=== PATIENT | female | born 1995 | race African-American/Black ===

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

== ENCOUNTER 2017-06-17 14:03 | Emergency (ER) | payer OTHER ==
[2017-06-17] MEDS ORDERED: PENICILLIN G BENZATHINE 1.2 MILLION UNIT/2 ML DISP.SYRIN IM ONE (16:06)
[2017-06-17] MEDS ORDERED: DEXAMETHASONE 4 MG TABLET PO ONE (16:08)
--- NOTE | 2017-06-17 16:10 | ER Document Report ---
ED ENT - General Chief Complaint: Sore Throat Stated Complaint: SORE THROAT Time Seen by Provider: 06/17/17 15:08 Mode of Arrival: Ambulatory Information source: Patient Notes: 22-year-old female presents to ED for complaint of cough runny nose congestion sore throat swollen glands since yesterday. She states she does not know if she has a fever because she has not taken her temperature. She states she is on her menstrual cycle right now. TRAVEL OUTSIDE OF THE [place] IN LAST 30 DAYS: No - HPI Patient complains to provider of: Nose problem, Throat problem Onset: Yesterday Onset/Duration: Gradual Quality of pain: Achy, Sharp - Throat is sharp Severity: Moderate Pain Level: 3 Context: Recent Illness Location of pain: Nose, Sinus, Throat Associated symptoms: Congestion, Cough, Fever, Runny nose, Sinus pain, Sinus drainage, Sore throat, Swollen glands Similar symptoms previously: No Recently seen / treated by doctor: No - Related Data Allergies/Adverse Reactions: No Known Allergies Allergy (Verified 06/17/17 14:04) Past Medical History - General Information source: Patient Last Menstrual Period: On her menstrual cycle now - Social History Smoking Status: Never Smoker Cigarette use (# per day): No Chew tobacco use (# tins/day): No Smoking Education Provided: No Frequency of alcohol use: None Drug Abuse: None Occupation: [employer] Lives with: Alone - Along with her child Family History: Arthritis, COPD, CVA, DM, Hypertension, Malignancy. denies: CAD , Hyperlipidemia, Thyroid Disfunction Patient has suicidal ideation: No Patient has homicidal ideation: No - Past Medical History Cardiac Medical History: Reports: None Pulmonary Medical History: Reports: None EENT Medical History: Reports: None Neurological Medical History: Reports: None Endocrine Medical History: Reports: None Renal/ Medical History: Reports: None Malignancy Medical History: Reports: None GI Medical History: Reports: None Musculoskeltal Medical History: Reports None Skin Medical History: Reports None Psychiatric Medical History: Reports: None Traumatic Medical History: Reports: None Infectious Medical History: Reports: None Past Surgical History: Reports: Hx Section, Hx Orthopedic Surgery - Right ring finger - Immunizations Immunizations up to date: Yes Hx Diphtheria, Pertussis, Tetanus Vaccination: Yes Review of Systems - Review of Systems Notes: Constitutional: [PRESENT: as per HPI. ABSENT: fever(s), weight gain, weight loss] states she thinks she might of had a fever has had a chill and headache Eyes: [ABSENT: visual disturbances] Ears: [ABSENT: hearing changes] Nasopharynx: Runny nose congestion sore throat swollen glands Cardiovascular: [ABSENT: chest pain, dyspnea on exertion, edema, orthropnea, palpitations] Respiratory: [ABSENT: cough, hemoptysis] Gastrointestinal: [ABSENT: abdominal pain, constipation, diarrhea, hematemesis, hematochezia, nausea, vomiting] Genitourinary: [ABSENT: dysuria, hematuria] Musculoskeletal: [ABSENT: joint swelling] Integumentary: [ABSENT: rash, wounds] Neurological: [ABSENT: abnormal gait, abnormal speech, confusion, dizziness, focal weakness, syncope] Psychiatric: [ABSENT: anxiety, depression, homicidal ideation, suicidal ideation ] Endocrine: [ABSENT: cold intolerance, heat intolerance, menstrual abnormalities , polydipsia, polyuria] Hematologic/Lymphatic: [ABSENT: easy bleeding, easy bruising] patient has had anterior cervical lymphadenopathy Physical Exam - Vital signs Vitals: Temp Pulse Resp BP Pulse Ox 100.0 F 89 16 116/64 99 06/17/17 14:12 06/17/17 14:12 06/17/17 14:12 06/17/17 14:12 06/17/17 14:12 - Notes Notes: PHYSICAL EXAMINATION: GENERAL: Well-appearing, well-nourished and in no acute distress. Low-grade fever HEAD: Atraumatic, normocephalic. EYES: Pupils equal round and reactive to light, extraocular movements intact, conjunctiva are normal. ENT: Swollen nasal turbinates with purulent drainage, postnasal drip with tonsillar hypertrophy without exudates. Moist mucous membranes. NECK: Normal range of motion, supple. Anterior cervical lymphadenopathy positive LUNGS: Breath sounds clear to auscultation bilaterally and equal. No wheezes rales or rhonchi. HEART: Regular rate and rhythm without murmurs ABDOMEN: Soft, nontender, nondistended abdomen. No guarding, no rebound. No masses appreciated. Female : deferred Musculoskeletal: Normal range of motion, no pitting or edema. No cyanosis. NEUROLOGICAL: Cranial nerves grossly intact. Normal speech, normal gait. Normal sensory, motor exams PSYCH: Normal mood, normal affect. SKIN: Warm, Dry, normal turgor, no rashes or lesions noted. Course - Re-evaluation Re-evalutation: 06/17/17 16:18 Patient signs and symptoms were consistent with a upper respiratory infection with sore throat. Her strep test did come back positive. Patient was treated with penicillin G IM and Decadron p.o. for her strep. Patient was given instructions on strep throat and cough and cold symptoms. Patient instructed to follow-up with her primary doctor. Patient was able to verbalize understanding of instructions and need to follow-up with her primary doctor. When asked if patient had any other questions or concerns she stated no. - Vital Signs Vital signs: Temp Pulse Resp BP Pulse Ox 99.1 F 82 16 109/58 L 100 06/17/17 16:55 06/17/17 16:55 06/17/17 16:55 06/17/17 16:55 06/17/17 16:55 Discharge - Discharge Clinical Impression: Strep pharyngitis URI (upper respiratory infection) Qualifiers: URI type: unspecified URI Qualified Code(s): J06.9 - Acute upper respiratory infection, unspecified Condition: Stable Disposition: HOME, SELF-CARE Instructions: Family Physicians / Practices Additional Instructions: STREP THROAT: Your sore throat is due to the streptococcus germ (strep throat). Strep throat usually makes you feel quite ill with fever and aches, headache, swollen sore throat, and tender bumps under the angles of the jaw. Strep throat requires antibiotic treatment. Although the sore throat may go away by itself, complications such as rheumatic fever, kidney disease, or throat abscess can occur. We usually prescribe antibiotics by mouth. Be sure to take the medicine until it's gone. If you stop early, the strep may come back. If you are vomiting, are severely ill, or can't remember to take pills, we can give you an antibiotic shot. Take acetaminophen or ibuprofen for pain and fever. Sip frequent clear liquids, or use popsicles or ice chips. Anesthetic sprays or lozenges may help. Make sure the air in the room is not too dry. Avoid using decongestants or antihistamines. Call the doctor if there is no improvement in three days, or if you have difficulty breathing, increasing throat pain, high fever, rash, or frequent vomiting. UPPER RESPIRATORY ILLNESS: You have a viral infection of the respiratory passages -- a "cold." This common infection causes nasal congestion, drainage, and often sore throat and cough. It is highly contagious. The disease usually lasts about 10 to 14 days. There is no "cure" for the viral infection -- it must run its course. If there is a complication, such as bacterial infection in the nose, sinuses, middle ear, or bronchial tubes, antibiotics may be required. The antibiotics won't affect the virus. Drink plenty of fluids. A humidifier may help. An expectorant medication or decongestant may make you more comfortable. Use acetaminophen or ibuprofen for fever or aches. See the doctor if fever persists over two days, if there is any significant worsening of your symptoms, or if you simply fail to improve as expected. USE OF ACETAMINOPHEN (Tylenol): Acetaminophen may be taken for pain relief or fever control. It's much safer than aspirin, offering a wider range of "safe" dosages. It is safe during . Some brand names are Tylenol, Panadol, Datril, Anacin 3, Tempra, and Liquiprin. Acetaminophen can be repeated every four hours. The following are maximum recommended dosages: >89 pounds or adults 650 mg to 900 mg Acetaminophen can be repeated every four hours. Maximum dose not to exceed 4000 mg a day. Ibuprofen Ibuprofen is an excellent, safe drug for pain control. In addition, it has potent antiinflammatory effects which are beneficial, especially in the treatment of injuries, arthritis, or tendonitis. It's best to take ibuprofen with food. Persons with ulcer disease or allergy to aspirin should notify their physician of this before taking ibuprofen. Take the medication exactly as prescribed. Don't take additional doses unless instructed to do so by your doctor. If you develop wheezing, shortness of breath, hives, faintness, stomach pain, vomiting, or dark black stools, return for re-evaluation at once. Penicillins The antibiotic you have received is a member of the penicillin family. This is a very useful class of antibiotics. The particular type of antibiotic chosen for you was determined by the nature of your problem. Penicillins are absorbed best when taken on an empty stomach, and should be taken either a half hour before or two hours after a meal. Some newer medicines of the penicillin class are better taken with food -- if this is the case, the pharmacist will label the medicine to alert you. Penicillins usually have no side effects. However, allergy to penicillins is common. If you have had an allergic reaction to any drug of the penicillin family, you should never take any other penicillin. Notify your doctor at once if you develop hives, itching, swelling, faintness, or shortness of breath. Less serious side effects can include nausea or diarrhea. STEROID MEDICATION: You have been given a medicine of the cortisone/steroid class. This medication is used to control inflammation or allergy. It is usually only given for a short period of time, until the acute process subsides. There are usually no side effects from short-term use of cortisone-like medications. Some persons feel an increased sense of well-being and are not sleepy at bedtime. Long-term use of cortisone medications is best avoided, unless required for a severe condition. If your condition does not remit, or relapses after the course of corticosteroid medication, you should consult your physician. FOLLOW-UP CARE: If you have been referred to a physician for follow-up care, call the physician s office for an appointment as you were instructed or within the next two days. If you experience worsening or a significant change in your symptoms, notify the physician immediately or return to the Emergency Department at any time for re-evaluation. Forms: Return to Work
[2017-06-17 17:11] VITALS: BP 109/58
== END 2017-06-17 16:55 | disposition home or self-care (01) ==
LOC: ER 14:03
DX: J02.0 Streptococcal pharyngitis (principal); R05 Cough; R09.89 Other specified symptoms and signs involving the circulatory and respiratory systems; R09.81 Nasal congestion; R59.9 Enlarged lymph nodes, unspecified; R50.9 Fever, unspecified
CPT/HCPCS: 99283; 96372; 87880; J0561

== ENCOUNTER 2017-07-26 19:42 | Emergency (ER) | payer OTHER ==
[2017-07-26] MEDS ORDERED: ACETAMINOPHEN 325 MG TABLET PO ONE (20:35)
[2017-07-26] MEDS ORDERED: CYCLOBENZAPRINE HCL 10 MG TABLET PO ONE (20:35)
--- NOTE | 2017-07-26 20:37 | ER Document Report ---
ED Medical Screen (RME) - General Chief Complaint: Abdominal Pain Stated Complaint: ABDOMINAL PAIN Time Seen by Provider: 07/26/17 20:31 Notes: RME DISCLOSURE I have seen this patient as part of a Rapid Medical Evaluation and, if applicable, placed any initially appropriate orders. The patient will be seen and fully evaluated, including a full history and physical exam, by a provider ( in Main ED or Fast Track) when a room becomes available. 22-year-old female here with complaints of: ABDOMINAL PAIN Ongoing for the past 1 week. Pain is intermittent. Pain is located in the suprapubic region. Pain is worse with movement. Pain resolves with minimizing movement. She does not currently have any pain. She has not taken anything for the symptoms. No fevers chills nausea vomiting dysuria hematuria frequency hesitancy. She did take a home test that was positive but then when she went to [facility] for her abdominal pain, their test was negative. BACK PAIN Low back pain ongoing for the past 1 week. Pain is intermittent. Pain is worse with movement. Pain is improved with minimizing movement. She denies any incontinence numbness tingling weakness retention fevers chills IV drug use. She has not taken anything for the pain. She denies any heavy lifting or traumatic injury. TRAVEL OUTSIDE OF THE [place] IN LAST 30 DAYS: No - Related Data Allergies/Adverse Reactions: No Known Allergies Allergy (Verified 06/17/17 14:04) Past Medical History Renal/ Medical History: Denies: Hx Peritoneal Dialysis Past Surgical History: Reports: Hx Section, Hx Orthopedic Surgery - Right ring finger - Immunizations Immunizations up to date: Yes Hx Diphtheria, Pertussis, Tetanus Vaccination: Yes Physical Exam - Vital signs Vitals: Temp Pulse Resp BP Pulse Ox 98.8 F 58 L 18 124/63 99 07/26/17 20:06 07/26/17 20:06 07/26/17 20:06 07/26/17 20:06 07/26/17 20:06 Course - Vital Signs Vital signs: Temp Pulse Resp BP Pulse Ox 98.8 F 58 L 18 124/63 99 07/26/17 20:06 07/26/17 20:06 07/26/17 20:06 07/26/17 20:06 07/26/17 20:06
[2017-07-26 21:12] LABS: APPEARANCE,URINE CLEAR; BILIRUBIN,URINE NEGATIVE (NEGATIVE); COLOR,URINE YELLOW; GLUCOSE, URINE NEGATIVE (NEGATIVE); KETONES,URINE NEGATIVE (NEGATIVE); LEUKOCYTE ESTERASE,URINE NEGATIVE (NEGATIVE); NITRITE,URINE NEGATIVE (NEGATIVE); PROTEIN,URINE NEGATIVE (NEGATIVE); URINE SPECIFIC GRAVITY 1.025
--- NOTE | 2017-07-26 22:45 | ER Document Report ---
ED General - General Chief Complaint: Abdominal Pain Stated Complaint: ABDOMINAL PAIN Time Seen by Provider: 07/26/17 20:31 Notes: 22-year-old female patient to the emergency department lower pelvic pain and right-sided back pain. Patient states that she is . Last child was 9 months ago. Denies any other medical problems. States that she has had some shortness of breath but no fever, cough chills or other things. TRAVEL OUTSIDE OF THE [place] IN LAST 30 DAYS: No - HPI Onset: Yesterday Onset/Duration: Gradual Quality of pain: Achy - Related Data Allergies/Adverse Reactions: No Known Allergies Allergy (Verified 06/17/17 14:04) Past Medical History - General Information source: Patient - Social History Smoking Status: Never Smoker Chew tobacco use (# tins/day): No Frequency of alcohol use: None Drug Abuse: None Lives with: Spouse/Significant other Family History: Arthritis, COPD, CVA, DM, Hypertension, Malignancy. denies: CAD , Hyperlipidemia, Thyroid Disfunction Patient has suicidal ideation: No Patient has homicidal ideation: No Renal/ Medical History: Denies: Hx Peritoneal Dialysis Past Surgical History: Reports: Hx Section, Hx Orthopedic Surgery - Right ring finger - Immunizations Immunizations up to date: Yes Hx Diphtheria, Pertussis, Tetanus Vaccination: Yes Review of Systems - Review of Systems Constitutional: No symptoms reported EENT: No symptoms reported Cardiovascular: No symptoms reported Respiratory: No symptoms reported Gastrointestinal: No symptoms reported, See HPI, Abdominal pain. denies: Diarrhea, Nausea, Vomiting Genitourinary: No symptoms reported, Flank pain. denies: Dysuria, Discharge Female Genitourinary: No symptoms reported, . denies: Heavy/abnormal periods, Irregular period, Vaginal discharge, Vaginal bleeding, Vaginal odor, Painful intercourse Musculoskeletal: No symptoms reported Skin: No symptoms reported Hematologic/Lymphatic: No symptoms reported Neurological/Psychological: No symptoms reported Physical Exam - Vital signs Vitals: Temp Pulse Resp BP Pulse Ox 98.8 F 58 L 18 124/63 99 07/26/17 20:06 07/26/17 20:06 07/26/17 20:06 07/26/17 20:06 07/26/17 20:06 Interpretation: Normal - General General appearance: Appears well, Alert - HEENT Head: Normocephalic, Atraumatic Eyes: Normal Pupils: PERRL - Respiratory Respiratory status: No respiratory distress Chest status: Nontender Breath sounds: Normal Chest palpation: Normal - Cardiovascular Rhythm: Regular Heart sounds: Normal auscultation Murmur: No - Abdominal Inspection: Normal Distension: No distension Bowel sounds: Normal Tenderness: Nontender Organomegaly: No organomegaly - Back Back: Normal, Nontender - Extremities General upper extremity: Normal inspection, Nontender, Normal color, Normal ROM , Normal temperature General lower extremity: Normal inspection, Nontender, Normal color, Normal ROM , Normal temperature, Normal weight bearing. No: Dajuan's sign - Neurological Neuro grossly intact: Yes Cognition: Normal Orientation: AAOx4 [place] Coma Scale Eye Opening: Spontaneous [place] Coma Scale Verbal: Oriented [place] Coma Scale Motor: Obeys Commands [place]era Coma Scale Total: 15 Speech: Normal Motor strength normal: LUE, RUE, LLE, RLE Sensory: Normal - Psychological Associated symptoms: Normal affect, Normal mood - Skin Skin Temperature: Warm Skin Moisture: Dry Skin Color: Normal Course - Re-evaluation Re-evalutation: 07/26/17 23:02 Well-appearing patient in no acute distress. Patient complaining of some lower pelvic pain and right flank pain. Urinalysis obtained at triage. UA shows positive hCG. Quantitative hCG and RhoGam workup ordered and will order pelvic ultrasound at this time. Bedside ultrasound was performed but could not visualize IUP 07/27/17 00:55 Laboratory 07/26/17 07/26/17 07/26/17 20:53 23:05 23:05 WBC 8.3 RBC 4.40 Hgb 11.9 L Hct 36.7 MCV 84 MCH 27.1 MCHC 32.4 RDW 13.8 Plt Count 256 Seg Neutrophils % 46.1 Lymphocytes % 44.1 Monocytes % 8.6 Eosinophils % 0.6 Basophils % 0.6 Absolute Neutrophils 3.8 Absolute Lymphocytes 3.6 Absolute Monocytes 0.7 Absolute Eosinophils 0.1 Absolute Basophils 0.0 Beta HCG, Quant 4556.10 H Total Beta HCG POSITIVE Urine Color YELLOW Urine Appearance CLEAR Urine pH 6.0 Ur Specific [place] 1.025 Urine Protein NEGATIVE Urine Glucose (UA) NEGATIVE Urine Ketones NEGATIVE Urine Blood NEGATIVE Urine Nitrite NEGATIVE Urine Bilirubin NEGATIVE Urine Urobilinogen 2.0 H Ur Leukocyte Esterase NEGATIVE Urine WBC (Auto) 2 Urine RBC (Auto) 0 Squamous Epi Cells Auto 2 Urine Mucus (Auto) RARE Urine Ascorbic Acid NEGATIVE Urine HCG, Qual POSITIVE H Blood Type Rhogam Indicated 07/26/17 23:05 WBC RBC Hgb Hct MCV MCH MCHC RDW Plt Count Seg Neutrophils % Lymphocytes % Monocytes % Eosinophils % Basophils % Absolute Neutrophils Absolute Lymphocytes Absolute Monocytes Absolute Eosinophils Absolute Basophils Beta HCG, Quant Total Beta HCG Urine Color Urine Appearance Urine pH Ur Specific [place] Urine Protein Urine Glucose (UA) Urine Ketones Urine Blood Urine Nitrite Urine Bilirubin Urine Urobilinogen Ur Leukocyte Esterase Urine WBC (Auto) Urine RBC (Auto) Squamous Epi Cells Auto Urine Mucus (Auto) Urine Ascorbic Acid Urine HCG, Qual Blood Type O POSITIVE Rhogam Indicated RHOGAM NOT INDICATED Transvaginal US 07/26/17 22:56 IMPRESSION: No definite intrauterine identified. There is a likely intrauterine gestational sac with yolk sac. Moderate free fluid in the right ovarian fossa. Differential diagnosis includes early viable gestation, ongoing gestational loss, and occult ectopic gestation. Recommend laboratory/sonographic surveillance in 48-72 hours. Patient has a likely IUP however not definitive at this time. HCG level 4500. Will recommend 24-48 hour repeat hCG, ectopic warning signs, outpatient follow- up instructions for SOFTWARE APPLICATIONS SPECIALIST - Vital Signs Vital signs: Temp Pulse Resp BP Pulse Ox 98.8 F 58 L 18 124/63 99 07/26/17 20:06 07/26/17 20:06 07/26/17 20:06 07/26/17 20:06 07/26/17 20:06 - Laboratory Result Diagrams: 07/26/17 23:05 Laboratory results interpreted by me: 07/26/17 07/26/17 07/26/17 20:53 23:05 23:05 Hgb 11.9 L Beta HCG, Quant 4556.10 H Urine Urobilinogen 2.0 H Urine HCG, Qual POSITIVE H Discharge - Discharge Clinical Impression: Pelvic pain during in first trimester, antepartum Condition: Good Disposition: HOME, SELF-CARE Instructions: Ectopic Precaution ([facility]), Pelvic Pain in ([facility] ) Additional Instructions: The ultrasound she shows possible early intrauterine however the possibility for an ectopic still exists. It will be very important that you get a repeat blood draw as well as a repeat ultrasound within 48-72 hours. If you begin to develop worsening abdominal pain, flank pain, passing out, vaginal bleeding or other symptoms you should return immediately for the repeat workup. I have given you follow-up information for SOFTWARE APPLICATIONS SPECIALIST. I have given you the orders for outpatient labs and repeat ultrasound. If you are unable to get OB/ PUBLICATION DESIGNER follow-up please return here for repeat workup Forms: Follow-Up Laboratory Testing, Follow-Up Radiology Testing
[2017-07-26 23:14] LABS: ABSOLUTE EOSINOPHILS # (AUTO) 0.1 10^3/uL (0.0-0.6); ABSOLUTE LYMPHOCYTES (AUTO) 3.6 10^3/uL (0.5-4.7); ABSOLUTE MONOCYTES (AUTO) 0.7 10^3/uL (0.1-1.4); ABSOLUTE NEUT (AUTO) 3.8 10^3/uL (1.7-8.2); BASOPHILS % (AUTO) 0.6 % (0-2); EOSINOPHILS % (AUTO) 0.6 % (0-6); HEMATOCRIT 36.7 % (36.0-47.0); HEMOGLOBIN 11.9 g/dL (12.0-15.5); LYMPHOCYTES % (AUTO) 44.1 % (13-45); MEAN CORPUSCULAR HEMOGLOBIN 27.1 pg (27.0-33.4); MEAN CORPUSCULAR HGB CONC 32.4 g/dL (32.0-36.0); MEAN CORPUSCULAR VOLUME 84 fl (80-97); MONOCYTES % (AUTO) 8.6 % (3-13); PLATELET COUNT 256 10^3/uL (150-450); RED CELL DISTRIBUTION WIDTH 13.8 % (11.5-14.0); SEGMENTED NEUTROPHILS % (AUTO) 46.1 % (42-78); TOTAL CELLS COUNTED % (AUTO) 100 %; WHITE BLOOD COUNT 8.3 10^3/uL (4.0-10.5)
--- NOTE | 2017-07-27 00:38 | RADIOLOGY REPORT (SQ) ---
EXAM DESCRIPTION: U/S OB TRANSVAG W/DOPPLER CLINICAL HISTORY: 22 years, Female, pelvic pain, + hcg COMPARISON: None. TECHNIQUE: Transvaginal LIMITATIONS: None. FINDINGS: No definite intrauterine identified. There is a likely intrauterine gestational sac with yolk sac; if viable this would correspond with a gestational age of five weeks and two days and FILEMON 03/26/18. No pole. No cardiac activity. 4.7 cm right ovary likely 2.5 x 1.7 x 2.0 cm corpus luteum, 3.0 cm left ovary, and moderate free fluid in the right ovarian fossa. IMPRESSION: No definite intrauterine identified. There is a likely intrauterine gestational sac with yolk sac. Moderate free fluid in the right ovarian fossa. Differential diagnosis includes early viable gestation, ongoing gestational loss, and occult ectopic gestation. Recommend laboratory/sonographic surveillance in 48-72 hours.
[2017-07-27 01:28] VITALS: BP 109/81
== END 2017-07-27 01:26 | disposition home or self-care (01) ==
LOC: ER 19:42
DX: O26.891 Other specified pregnancy related conditions, first trimester (principal); R10.2 Pelvic and perineal pain; Z3A.00 Weeks of gestation of pregnancy not specified
CPT/HCPCS: 36415; 76817; 81001; 81025; 84702; 85025; 86900; 86901; 93976; 99284

== ENCOUNTER 2017-08-18 17:01 | Emergency (ER) | payer OTHER ==
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
[2017-08-18 19:20] LABS: APPEARANCE,URINE SLIGHTLY-CLOUDY; BILIRUBIN,URINE NEGATIVE (NEGATIVE); COLOR,URINE YELLOW; GLUCOSE, URINE NEGATIVE (NEGATIVE); KETONES,URINE NEGATIVE (NEGATIVE); LEUKOCYTE ESTERASE,URINE NEGATIVE (NEGATIVE); NITRITE,URINE NEGATIVE (NEGATIVE); PROTEIN,URINE NEGATIVE (NEGATIVE); URINE SPECIFIC GRAVITY 1.017; UROBILINOGEN,URINE NEGATIVE mg/dL (<2.0)
[2017-08-18 20:03] VITALS: BP 125/69
== END 2017-08-18 20:06 | disposition home or self-care (01) ==
LOC: ER 17:01
DX: O26.91 Pregnancy related conditions, unspecified, first trimester (principal); S46.819A Strain of other muscles, fascia and tendons at shoulder and upper arm level, unspecified arm, initial encounter; R42 Dizziness and giddiness; X50.0XXA Overexertion from strenuous movement or load, initial encounter; Y99.0 Civilian activity done for income or pay; Z3A.09 9 weeks gestation of pregnancy
CPT/HCPCS: 81001; 82962; 99284

== ENCOUNTER 2018-01-24 14:00 | Emergency (ER) | payer OTHER, MEDICAID ==
[2018-01-24 14:10] VITALS: BP 107/60
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
== END 2018-01-24 15:55 | disposition home or self-care (01) ==
LOC: ER 14:00
DX: O26.893 Other specified pregnancy related conditions, third trimester (principal); R10.2 Pelvic and perineal pain; V49.40XA Driver injured in collision with unspecified motor vehicles in traffic accident, initial encounter; Z3A.00 Weeks of gestation of pregnancy not specified
CPT/HCPCS: 76815; 99284

== ENCOUNTER 2018-01-24 15:44 | Outpatient (CLI) | payer OTHER, MEDICAID ==
[2018-01-24] MEDS ORDERED: RINGERS SOLUTION,LACTATED 1,000 ML IV PRN (16:53)
[2018-01-24 17:43] LABS: URINE AMPHETAMINES SCREEN NEGATIVE; URINE BARBITURATES SCREEN NEGATIVE; URINE BENZODIAZEPINES SCREEN NEGATIVE; URINE COCAINE SCREEN NEGATIVE; URINE MARIJUANA (THC) SCREEN NEGATIVE; URINE METHADONE SCREEN NEGATIVE; URINE PHENCYCLIDINE SCREEN NEGATIVE
== END 2018-01-24 20:17 | disposition home or self-care (01) ==
LOC: LC 15:44
PROVIDERS: ATTEND Obstetrics & Gynecology
PROC: 4A1HXCZ Monitoring of Products of Conception, Cardiac Rate, External Approach (ICD-10-PCS; principal; 2018-01-24)
DX: O9A.213 Injury, poisoning and certain other consequences of external causes complicating pregnancy, third trimester (principal); V49.9XXA Car occupant (driver) (passenger) injured in unspecified traffic accident, initial encounter; Y93.9 Activity, unspecified; Y92.9 Unspecified place or not applicable; Z3A.31 31 weeks gestation of pregnancy; R10.9 Unspecified abdominal pain
CPT/HCPCS: 80307

== ENCOUNTER 2018-02-12 22:30 | Outpatient (CLI) | payer MEDICAID ==
[2018-02-12 22:57] LABS: APPEARANCE,URINE CLEAR; BILIRUBIN,URINE NEGATIVE (NEGATIVE); COLOR,URINE YELLOW; GLUCOSE, URINE NEGATIVE (NEGATIVE); KETONES,URINE NEGATIVE (NEGATIVE); LEUKOCYTE ESTERASE,URINE NEGATIVE (NEGATIVE); NITRITE,URINE NEGATIVE (NEGATIVE); PROTEIN,URINE NEGATIVE (NEGATIVE); URINE SPECIFIC GRAVITY 1.005; UROBILINOGEN,URINE NEGATIVE mg/dL (<2.0)
[2018-02-12 23:13] LABS: URINE AMPHETAMINES SCREEN NEGATIVE; URINE BARBITURATES SCREEN NEGATIVE; URINE BENZODIAZEPINES SCREEN NEGATIVE; URINE COCAINE SCREEN NEGATIVE; URINE MARIJUANA (THC) SCREEN NEGATIVE; URINE METHADONE SCREEN NEGATIVE; URINE PHENCYCLIDINE SCREEN NEGATIVE
--- NOTE | 2018-02-13 00:45 | Non Stress Test Report ---
Non Stress Test Datetime Report Generated by CPN: 02/13/2018 00:45 DEMOGRAPHIC EGA NST: 34.3 INDICATION Indication for Study: Ordered by Provider VITAL SIGNS Temperature - NST: 97.9 Pulse - NST: 66 RESP - NST: 14 NBPSYS NST: 117 NBPDIA NST: 65 URINE RESULTS Urine Protein, NST: Negative Urine Ketones - NST: Negative Urine Glucose - NST: Negative Urine Blood - NST: Negative MONITORING Monitor Explained: Monitor Explained; Test Explained; Patient Verbalized Understanding Time on Monitor: 02/12/2018 22:53 Time off Monitor: 02/13/2018 00:15 NST Duration: 82 NST INTERVENTIONS NST Interventions: PO Hydration Physician Notified NST: Thornton BABY A: [id number] BABY A Movement : Present Contraction Frequency : None FHR Baseline : 125 Accelerations : 15X15 Decelerations : None Variability : Moderate 6-25bpm NST Review: Meets Criteria for Reactive NST NST Review and Verified By : LeannaFeliciano Tea RN NST Results: Reactive NST REPORT Report Trigger: Send Report
== END 2018-02-13 00:34 | disposition home or self-care (01) ==
LOC: LC 22:30
PROVIDERS: ATTEND Student in an Organized Health Care Education/Training Program
PROC: 4A1HXCZ Monitoring of Products of Conception, Cardiac Rate, External Approach (ICD-10-PCS; principal; 2018-02-12)
DX: Z34.93 Encounter for supervision of normal pregnancy, unspecified, third trimester (principal)
CPT/HCPCS: 80307; 81001

== ENCOUNTER 2018-03-16 05:04 | Inpatient (IN) | payer MEDICAID ==
[2018-03-14 11:45] LABS: ABSOLUTE EOSINOPHILS # (AUTO) 0.1 10^3/uL (0.0-0.6); ABSOLUTE LYMPHOCYTES (AUTO) 2.1 10^3/uL (0.5-4.7); ABSOLUTE MONOCYTES (AUTO) 0.6 10^3/uL (0.1-1.4); ABSOLUTE NEUT (AUTO) 4.9 10^3/uL (1.7-8.2); BASOPHILS % (AUTO) 0.2 % (0-2); EOSINOPHILS % (AUTO) 0.7 % (0-6); HEMATOCRIT 31.6 % (36.0-47.0); HEMOGLOBIN 10.6 g/dL (12.0-15.5); MEAN CORPUSCULAR HEMOGLOBIN 28.5 pg (27.0-33.4); MEAN CORPUSCULAR HGB CONC 33.4 g/dL (32.0-36.0); MEAN CORPUSCULAR VOLUME 86 fl (80-97); MONOCYTES % (AUTO) 8.4 % (3-13); PLATELET COUNT 156 10^3/uL (150-450); RED CELL DISTRIBUTION WIDTH 13.7 % (11.5-14.0); SEGMENTED NEUTROPHILS % (AUTO) 63.7 % (42-78); TOTAL CELLS COUNTED % (AUTO) 100 %; WHITE BLOOD COUNT 7.6 10^3/uL (4.0-10.5)
[2018-03-14 11:55] LABS: APPEARANCE,URINE SLIGHTLY-CLOUDY; BILIRUBIN,URINE NEGATIVE (NEGATIVE); COLOR,URINE YELLOW; GLUCOSE, URINE NEGATIVE (NEGATIVE); KETONES,URINE NEGATIVE (NEGATIVE); LEUKOCYTE ESTERASE,URINE NEGATIVE (NEGATIVE); NITRITE,URINE NEGATIVE (NEGATIVE); PROTEIN,URINE NEGATIVE (NEGATIVE); URINE SPECIFIC GRAVITY 1.015
[2018-03-14 12:13] LABS: URINE AMPHETAMINES SCREEN NEGATIVE; URINE BARBITURATES SCREEN NEGATIVE; URINE BENZODIAZEPINES SCREEN NEGATIVE; URINE COCAINE SCREEN NEGATIVE; URINE MARIJUANA (THC) SCREEN NEGATIVE; URINE METHADONE SCREEN NEGATIVE; URINE PHENCYCLIDINE SCREEN NEGATIVE
[2018-03-14 13:16] LABS: CHLAM PCR NOT DETECTED (NOT DETECT); GON PCR NOT DETECTED (NOT DETECT)
[2018-03-16] MEDS ORDERED: CEFAZOLIN 2 GM/D5W RTU 2 GM/50 ML RTUPB IV PRN (05:17)
[2018-03-16] MEDS ORDERED: RINGERS SOLUTION,LACTATED 1,000 ML IV PRN ×2 (05:18)
[2018-03-16] MEDS ORDERED: EPHEDRINE SULFATE INJ 50 MG/1 ML AMPULE ONE (07:18)
[2018-03-16] MEDS ORDERED: FENTANYL CITRATE INJ/PF 100 MCG/2 ML AMPUL ONE (07:18)
[2018-03-16] MEDS ORDERED: MIDAZOLAM 2 MG/2 ML INJ ONE (07:18)
[2018-03-16] MEDS ORDERED: OXYTOCIN 10 UNIT/ML VIAL ONE (07:18)
[2018-03-16] MEDS ORDERED: KETOROLAC TROMETHAMINE INJ/PF 30 MG/1 ML SDV ONE (07:18)
[2018-03-16] MEDS ORDERED: METHYLERGONOVINE MALEATE INJ/PF 0.2 MG/1 ML AMPULE ONE (07:19)
[2018-03-16] MEDS ORDERED: ACETAMINOPHEN 1,000 MG/100 ML RTUPB IV ONE (07:19)
[2018-03-16] MEDS ORDERED: OXYTOCIN/NORMAL SALINE 20 UNIT/1,000 ML RTUINJ ONE (07:19)
[2018-03-16] MEDS ORDERED: ONDANSETRON HCL INJ/PF 4 MG/2 ML SDV ONE (07:19)
[2018-03-16] MEDS ORDERED: MEPERIDINE HCL/PF INJ 25 MG/1 ML DISP.SYRIN IV PRN (07:47)
[2018-03-16] MEDS ORDERED: MORPHINE SULFATE 10 MG/ML INJ IV PRN (07:47)
[2018-03-16] MEDS ORDERED: PROMETHAZINE HCL INJ 25 MG/1 ML VIAL IV PRN ×3 (07:47→09:59)
[2018-03-16] MEDS ORDERED: OXYCODONE-ACETAMINOPHEN 5-325 MG TABLET PO PRN ×3 (07:47→09:59)
[2018-03-16] MEDS ORDERED: FENTANYL CITRATE INJ/PF 100 MCG/2 ML AMPUL IV PRN ×3 (07:47)
[2018-03-16] MEDS ORDERED: ONDANSETRON HCL INJ/PF 4 MG/2 ML SDV IV PRN (07:47)
[2018-03-16] MEDS ORDERED: DIPHENHYDRAMINE HCL 50 MG/ML VIAL IV PRN (07:47)
[2018-03-16] MEDS ORDERED: BUPIVACAINE HCL/DEX-WATER/PF 15 MG/2 ML AMPULE ONE (07:52)
[2018-03-16] MEDS ORDERED: DIPHENHYDRAMINE HCL 25 MG CAPSULE ONE (08:52)
[2018-03-16] MEDS ORDERED: DIPHENHYDRAMINE HCL 50 MG/ML VIAL ONE (09:00)
--- NOTE | 2018-03-16 09:47 | PDOC DELIVERY SUMMARY ---
Delivery Summary - Maternal Hx : II Hx Para: I Hx # Term Pregnancies: 1 Hx # Pregnancies: 0 Number of Living Children: 1 FILEMON: 03/23/18 Gestational Age: 39 weeks Risk Factors: Previous Ruptured Membranes: AROM Time of Rupture: 08:16 Fluids: Clear - Delivery Labor: Not In Labor Presentation: Vertex Heart Rate Monitoring: Done Pre-Operatively Uterine Contraction Monitoring: External Support Person Present: Yes - BALDO Location: LD : Scheduled Placenta: Within Normal Limits Placenta Description: normal Number of Vessels (Cord): 3 Nuchal Cord: No Delivery of Placenta Date: 03/16/18 Delivery of Placenta Time: 08:19 Delivery Quantitative Blood Loss (QBL): 1,060 - Medications Type of Anesthesia:: Spinal - Assess and Care Baby 1 Female Delivery of Date: 03/16/18 Delivery of Time: 08:18 at 1 minute: 9 at 5 minutes: 9 Preprinted Number On Band: [id number] Infant Skin to Skin: Yes Skin to Skin (Mins): 3 Additional Comments: Vacuum assisted To Nursery At: 08:26 Mode of Transport: Bassinet Delivery Weight: 3,235 Infant Delivery Length: 19.75 in - Delivery Personnel Legal Director: KARLIE REEVES RN: SARATH LAI RN: BRENNA URBAN MD: CHUCK HWANG
[2018-03-16] MEDS ORDERED: NALBUPHINE HCL INJ 10 MG/1 ML AMPULE ONE (09:52)
[2018-03-16] MEDS ORDERED: NALBUPHINE HCL INJ 10 MG/1 ML AMPULE INJ ONE (09:54)
--- NOTE | 2018-03-16 09:58 | Brief Operative Note ---
BRIEF OPERATIVE REPORT DATE OF SURGERY: 03/16/18 TIME OF SURGERY: 08:00 PREOPERATIVE DIAGNOSIS: 1. Uterine at 39 weeks plan. 2. section POSTOPERATIVE DIAGNOSIS: Same SURGEON: CHUCK PHAM FINDINGS: Normal placenta; viable female COMPLICATIONS: None ESTIMATED BLOOD LOSS: 1060 ml TISSUE REMOVED OR ALTERED: Placenta TECHNICAL PROCEDURE: Repeat section
[2018-03-16] MEDS ORDERED: DIPH/PERTUSS(ACELL)/TETANUS VAC/PF 0.5 ML SYR (>=10YO) IM PRN (09:59)
[2018-03-16] MEDS ORDERED: OXYTOCIN/NORMAL SALINE 20 UNIT/1,000 ML RTUINJ IV PRN (09:59)
[2018-03-16] MEDS ORDERED: SIMETHICONE 80 MG TAB.CHEW PO PRN (09:59)
[2018-03-16] MEDS ORDERED: ACETAMINOPHEN 325 MG TABLET PO PRN (09:59)
[2018-03-16] MEDS ORDERED: MEASLES,MUMPS&RUBELLA VACC/PF 0.5 ML VIAL SUBCUT PRN (09:59)
[2018-03-16] MEDS: MORPHINE SULFATE 10 MG/ML INJ IM PRN ×2 (11:49→19:06)
[2018-03-16] MEDS: OXYCODONE-ACETAMINOPHEN 5-325 MG TABLET PO PRN ×3 (13:33→22:40)
--- NOTE | 2018-03-16 17:09 | Operative Report ---
Operative Report DATE OF SURGERY: 03/16/18 PREOPERATIVE DIAGNOSIS: 1. Intrauterine at 39-0/7 weeks. 2. Previous section x1. 3. GBS negative. 4. Maternal obesity. 5. Rh+ . 6. Baxter immune POSTOPERATIVE DIAGNOSIS: Same OPERATION: Scheduled repeat section SURGEON: CHUCK PHAM ANESTHESIA: Spinal TISSUE REMOVED OR ALTERED: Placenta COMPLICATIONS: None ESTIMATED BLOOD LOSS: 1060 ml INTRAOPERATIVE FINDINGS: Female infant in a cephalic position; normal uterus, tubes and ovaries PROCEDURE: Procedure: The patient was taken to the operating room where spinal anesthesia was obtained and found to be adequate. She was then prepped and draped in the normal sterile fashion and placed in the dorsal supine position with a leftward tilt. A Pfannenstiel skin incision was then made and carried through to the underlying layers of the fascia with the scalpel. The fascia was incised in the midline and the incision extended laterally with the Gautam scissors. The superior aspect of the fascial incision was then grasped with Wero clamps elevated and the underlying rectus muscles dissected off [bluntly and sharply]. Attention was then turned to the inferior aspect of the fascial incision which in a similar fashion was grasped, tented up with Wero clamps, and the rectus muscles dissected off [both bluntly and sharply]. The rectus muscles were then in the midline and the peritoneum at the amount identified and entered [bluntly with a hemostat]. The peritoneal incision was then extended superiorly and inferiorly with good visualization of the bladder. The bladder blade was inserted and the vesicouterine peritoneum identified grasped with [place] pickups and entered sharply with the Metzenbaum scissors. This incision was then extended laterally with the Metzenbaum scissors and a bladder flap created digitally. The bladder blade was then reinserted and the lower uterine segment incised in a transverse fashion with the scalpel. The uterine incision was then extended bluntly and with the bandage scissors. The bladder blade was removed and the 's head was delivered from cephalic presentation atraumatically with the assistance of a vacuum. The nose and mouth were suctioned and the cord doubly clamped and cut. And the was handed off to awaiting pediatricians. The placenta was then delivered manually and the uterus was cleared of all clots and debris. The uterine incision was then repaired with 1-0 Vicryl in a running locked fashion. A second layer, using, O-Chromic was used embricate the incision to obtain hemostasis. The bladder flap was then repaired with 3-0 vicryl in a running fashion. A piece of Interceed was placed over the uterine incision as well as piece vertically on the anterior surface of the uterus to prevent adhesions. The gutters were cleared of all clots and debris. All operative sites were noted to be hemostatic. The fascia was reapproximated with 0 Vicryl in a running fashion from each lateral edge to the midline. 3-0 vicryl was used to close the subcutaneous fat layer in an interrupted fashion. The skin was closed with 4-0 Monocryl in a running subcuticular fashion. The patient tolerated the procedure well. Sponge, lap, needle and instrument counts are correct x 2. 2 g of Ancef were given prior to skin incision. The patient was taken to the recovery area awake and in stable condition.
[2018-03-16] MEDS: DOCUSATE SODIUM 100 MG CAPSULE PO SCH (17:32)
[2018-03-17] MEDS: MORPHINE SULFATE 10 MG/ML INJ IM PRN (02:44)
[2018-03-17 06:50] LABS: HEMATOCRIT 28.9 % (36.0-47.0); HEMOGLOBIN 9.8 g/dL (12.0-15.5); MEAN CORPUSCULAR HEMOGLOBIN 28.9 pg (27.0-33.4); MEAN CORPUSCULAR VOLUME 85 fl (80-97); PLATELET COUNT 147 10^3/uL (150-450); RED BLOOD COUNT 3.39 10^6/uL (3.72-5.28); RED CELL DISTRIBUTION WIDTH 13.9 % (11.5-14.0); WHITE BLOOD COUNT 9.7 10^3/uL (4.0-10.5)
[2018-03-17] MEDS: OXYCODONE-ACETAMINOPHEN 5-325 MG TABLET PO PRN ×3 (07:26→21:01)
[2018-03-17] MEDS ORDERED: MORPHINE SULFATE 10 MG/ML INJ IV PRN (07:41)
[2018-03-17] MEDS ORDERED: IRON SUCROSE COMPLEX INJ/PF 100 MG/5 ML SDV IV ONE (09:00)
--- NOTE | 2018-03-17 09:08 | PDOC PROGRESS REPORT ---
Subjective-OB Progress Note for:: 03/17/18 Physical Exam (OB) Vital Signs: Temp Pulse Resp BP Pulse Ox 98.5 F 69 18 108/70 98 03/17/18 03:16 03/17/18 03:16 03/17/18 03:16 03/17/18 03:16 03/17/18 03:16 Intake & Output 03/16/18 03/17/18 03/18/18 06:59 06:59 06:59 Intake Total 811 Output Total 2700 Balance -1889 Weight 108.862 kg - General General Appearance: Appears well - PIH/Pre-Eclampsia DTR's: 2 + Clonus: Negative Headache: Absent Epigastric Pain: No Visual Changes: No - Dressing Removed: No Incision: Dressing Closure Type: Sutures - Bilateral Tubal Ligation Site: Dressing - Lochia Lochia Amount: Scant < 10 ml Lochia Color: Rubra/Red - Abdomen Description: Tender, Soft Hernia Present: No Flatus Presence: Present Fundal Description: Firm, Midline Fundal Height: u/u - u/2 - Respiratory Breath sounds: Clear - Extremities Calf: Normal Objective-Diagnostic Laboratory: 03/17/18 06:33 03/17/18 06:33 WBC 9.7 RBC 3.39 L Hgb 9.8 L Hct 28.9 L MCV 85 MCH 28.9 MCHC 34.0 RDW 13.9 Plt Count 147 L
[2018-03-17] MEDS: PRENATAL VITAMIN W DHA CAPSULE PO SCH (11:14)
[2018-03-17] MEDS: DOCUSATE SODIUM 100 MG CAPSULE PO SCH ×2 (11:14→17:58)
--- NOTE | 2018-03-18 09:06 | PDOC DISCHARGE SUMMARY ---
Final Diagnosis Discharge Date: 03/18/18 - Final Diagnosis (1) Status post repeat low transverse section Is this a current diagnosis for this admission?: Yes Discharge Data - Discharge Medication Home Medications: Vit No.130/Iron/Folic [ Vitamins] 1 each PO DAILY 01/24/18 Reason(s) for Admission: Ceasarean Section-Repeat Procedures: NST Intrapartum Procedure(s): : Low Cervical, Transverse - Diagnosis Test Laboratory: Temp Pulse Resp BP Pulse Ox 98.7 F 74 16 108/57 L 100 03/18/18 08:16 03/18/18 08:16 03/18/18 08:16 03/18/18 08:16 03/18/18 08:16 03/14/18 03/14/18 03/17/18 11:09 11:09 06:33 RBC 3.70 L 3.39 L Hgb 10.6 L 9.8 L Hct 31.6 L 28.9 L Urine Opiates Screen NEGATIVE - Discharge information/Instructions Discharge Activity: Balance Activity w/Rest, No Lifting Over 10 Pounds, No Lifting/Push/Pulling, Pelvic Rest, No tub bath, Walk Frequently Discharge Diet: Regular Disposition: HOME, SELF-CARE Follow up with: [facility] in: 5, Days
[2018-03-18] MEDS: PRENATAL VITAMIN W DHA CAPSULE PO SCH (10:02)
[2018-03-18] MEDS: DOCUSATE SODIUM 100 MG CAPSULE PO SCH (10:02)
[2018-03-18 10:41] VITALS: BP 109/58
[2018-03-18] MEDS: OXYCODONE-ACETAMINOPHEN 5-325 MG TABLET PO PRN (10:51)
--- NOTE | 2018-03-22 14:21 | PDOC DELIVERY SUMMARY ---
Delivery Summary - Maternal Hx : II Hx # Term Pregnancies: 1 Hx # Pregnancies: 0 Number of Living Children: 1 FILEMON: 03/23/18 Gestational Age: 39 weeks Risk Factors: Previous Ruptured Membranes: AROM Time of Rupture: 08:16 Fluids: Clear - Delivery Labor: Not In Labor Presentation: Vertex Heart Rate Monitoring: Done Pre-Operatively Uterine Contraction Monitoring: External Support Person Present: Yes - BALDO Location: LD : Scheduled Placenta: Within Normal Limits Placenta Description: normal Number of Vessels (Cord): 3 Delivery of Placenta Date: 03/16/18 Delivery of Placenta Time: 08:19 - Medications Type of Anesthesia:: Spinal - Infant Assess and Care Baby 1 Female Delivery of Date: 03/16/18 Delivery of Infant Time: :18 at 1 minute: 9 at 5 minutes: 9 Preprinted Number On Band: [id number] Infant Skin to Skin: Yes Skin to Skin (Mins): 3 Additional Comments: Vacuum assisted To Nursery At: 08:26 Mode of Transport: Bassinet Infant Delivery Weight: 3,235 Delivery Length: 19.75 in - Delivery Personnel Pool Servicer: KARLIE REEVES RN: SARATH LAI RN: BRENNA URBAN MD: CHUCK HWANG
== END 2018-03-18 13:47 | disposition home or self-care (01) | DRG 788 ==
LOC: 2S 05:04
PROVIDERS: ADMIT Obstetrics & Gynecology; ATTEND Obstetrics & Gynecology
PROC: 10D00Z1 Extraction of Products of Conception, Low, Open Approach (ICD-10-PCS; principal; 2018-03-16 07:45)
DX: O34.211 Maternal care for low transverse scar from previous cesarean delivery (principal); N85.8 Other specified noninflammatory disorders of uterus; O99.214 Obesity complicating childbirth; E66.9 Obesity, unspecified; O99.344 Other mental disorders complicating childbirth; F41.8 Other specified anxiety disorders; Z37.0 Single live birth; Z3A.39 39 weeks gestation of pregnancy
CPT/HCPCS: 1961; 36415; 59025; 80307; 81001; 85025; 85027; 86850; 86900; 86901; 87491; 87591; 94799; C1765; J0131; J0690; J1200; J1756; J1885; J2210; J2250; J2270; J2300; J2405; J2590; J3010; J3490; J7120

== ENCOUNTER 2018-03-19 20:07 | Emergency (ER) | payer MEDICAID ==
[2018-03-19] MEDS ORDERED: METOCLOPRAMIDE HCL INJ/PF 10 MG/2 ML SDV IV ONE (22:18)
--- NOTE | 2018-03-19 22:32 | ER Document Report ---
ED General - General Chief Complaint: Headache Stated Complaint: Headache Time Seen by Provider: 03/19/18 20:36 Notes: Patient is a 22-year-old female 4 days status post did have a epidural placed, it required 3 separate attempts for successful placement who presents with complaints of a headache since delivery. She states that the headache is a global, throbbing, aching headache. States that it is improved by lying down and worsened when she stands up. Nothing seems to resolve the headache. She denies a history of similar headaches in the past. She denies any associated weakness, numbness, fever, confusion or syncope. She has not contacted her general doctor or OB regarding this issue. TRAVEL OUTSIDE OF THE [place] IN LAST 30 DAYS: No - Related Data Allergies/Adverse Reactions: No Known Allergies Allergy (Verified 03/19/18 20:26) Past Medical History - General Information source: Patient - Social History Smoking Status: Never Smoker Frequency of alcohol use: None Drug Abuse: None Lives with: Spouse/Significant other Family History: Arthritis, COPD, CVA, DM, Hypertension, Malignancy. denies: CAD , Hyperlipidemia, Thyroid Disfunction Patient has suicidal ideation: No Patient has homicidal ideation: No Renal/ Medical History: Denies: Hx Peritoneal Dialysis Past Surgical History: Reports: Hx Section, Hx Orthopedic Surgery - Right ring finger - Immunizations Immunizations up to date: Yes Hx Diphtheria, Pertussis, Tetanus Vaccination: Yes Review of Systems - Review of Systems Notes: Constitutional: Negative for fever. HENT: Negative for sore throat. Eyes: Negative for visual changes. Cardiovascular: Negative for chest pain. Respiratory: Negative for shortness of breath. Gastrointestinal: Negative for abdominal pain, vomiting or diarrhea. Genitourinary: Negative for dysuria. Musculoskeletal: Negative for back pain. Skin: Negative for rash. Neurological: Positive for headache 10 point ROS negative except as marked above and in HPI. Physical Exam - Vital signs Vitals: Temp Pulse Resp BP Pulse Ox 98.9 F 63 16 131/82 H 98 03/19/18 20:19 03/19/18 20:19 03/19/18 20:19 03/19/18 20:19 03/19/18 20:19 Interpretation: Normal Notes: PHYSICAL EXAMINATION: GENERAL: Well-appearing, well-nourished and in no acute distress. HEAD: Atraumatic, normocephalic. EYES: Pupils equal round and reactive to light, extraocular movements intact, sclera anicteric, conjunctiva are normal. ENT: nares patent, oropharynx clear without exudates. Moist mucous membranes. NECK: Normal range of motion, supple without lymphadenopathy LUNGS: Breath sounds clear to auscultation bilaterally and equal. No wheezes rales or rhonchi. HEART: Regular rate and rhythm without murmurs ABDOMEN: Soft, nontender, normoactive bowel sounds. No guarding, no rebound. No masses appreciated. EXTREMITIES: Normal range of motion, no pitting or edema. No cyanosis. NEUROLOGICAL: Face symmetric. Tongue protrudes midline. Extraocular motions intact. Pupils are 2 mm and equally reactive. Normal speech, normal gait. 5 out of 5 strength in both the distal and proximal upper and lower extremities bilaterally. Sensation is grossly intact throughout. Finger to nose testing normal. Pronator drift normal. PSYCH: Normal mood, normal affect. SKIN: Warm, Dry, normal turgor, no rashes or lesions noted. Course - Re-evaluation Re-evalutation: 03/19/18 22:31 Patient presents with a headache that has been present since she had a epidural placed during delivery 4 days ago. She describes it as a global, constant, throbbing headache that typically resolves when she lies flat and becomes much worse when she stands up. States that nothing has improved the headache since onset does not have concerning features for a more worrisome pathology. No indication for labs or imaging. Her blood pressure is within normal limits. History not consistent with preeclampsia and she did not have this during . She has had some relief with metoclopramide although not complete resolution. She has been set up for a blood patch in the morning through the nursing supervisory training specialist. At this time will discharge with return precautions and follow-up recommendations. Verbal discharge instructions given a the bedside and opportunity for questions given. Patient is in agreement with this plan and has verbalized understanding of return precautions. - Vital Signs Vital signs: Temp Pulse Resp BP Pulse Ox 98.9 F 62 22 H 121/80 99 03/19/18 20:19 03/19/18 20:26 03/19/18 22:01 03/19/18 22:01 03/19/18 22:01 Discharge - Discharge Clinical Impression: Post lumbar puncture headache Condition: Good Disposition: HOME, SELF-CARE Additional Instructions: Your symptoms are most consistent with a post lumbar puncture headache likely from the epidural that was placed during your delivery. You will be contacted tomorrow for placement of a blood patch to resolve your headache. Please return if you develop persistent vomiting, worsening of your headache, confusion , pass out, have weakness or numbness, or have any other symptoms that are worrisome to you. Referrals: OWEN PEARSON CNM [Primary Care Provider] - Follow up as needed
[2018-03-19 22:34] VITALS: BP 121/80
--- NOTE | 2018-03-21 15:49 | EKG REPORT ---
SEVERITY:- NORMAL ECG - SINUS RHYTHM : Confirmed by: Ivet Bundy MD 21-Mar-2018 15:48:59
== END 2018-03-19 22:41 | disposition home or self-care (01) ==
LOC: ER 20:07
DX: O99.355 Diseases of the nervous system complicating the puerperium (principal); G97.1 Other reaction to spinal and lumbar puncture; Y84.4 Aspiration of fluid as the cause of abnormal reaction of the patient, or of later complication, without mention of misadventure at the time of the procedure; Z98.890 Other specified postprocedural states
CPT/HCPCS: 93005; 99283; 96374; 93010; J2765

== ENCOUNTER 2019-05-23 17:16 | Emergency (ER) | payer SELFPAY ==
--- NOTE | 2019-05-23 17:36 | ER Document Report ---
ED Medical Screen (RME) - General Chief Complaint: Vaginal Itching Stated Complaint: VAGINAL DISCOMFORT Time Seen by Provider: 05/23/19 17:31 Primary Care Provider: OWEN PEARSON CNM [Primary Care Provider] - Follow up as needed Mode of Arrival: Ambulatory Information source: Patient Notes: 24-year-old female presents to ED for complaint of vaginal discharge vaginal itching and burning to the vaginal area. Patient denies any pelvic pain at all. She states she does have vaginal pain and vaginal discharge. Patient states she has had bacterial vaginosis and yeast infections in the past and that is what this feels like. Last menstrual period was May 01. TRAVEL OUTSIDE OF THE [place] IN LAST 30 DAYS: No - HPI Onset: Yesterday Onset/Duration: Gradual Quality of pain: Burning Severity: Moderate Pain Level: 4 Associated Symptoms: Other - Vaginal discharge burning with urination burning to the vagina Exacerbated by: Other - Urination Relieved by: Denies Similar symptoms previously: Yes Recently seen / treated by doctor: No - Related Data Smoking: Non-smoker Frequency of alcohol use: None Drug Abuse: None Allergies/Adverse Reactions: No Known Allergies Allergy (Verified 05/23/19 17:30) Past Medical History - General Information source: Patient - Social History Cigarette use (# per day): No Chew tobacco use (# tins/day): No Frequency of alcohol use: None Drug Abuse: None Lives with: Family Family history: Reviewed & Not Pertinent - Past Medical History Cardiac Medical History: Reports: None Pulmonary Medical History: Reports: None EENT Medical History: Reports: None Neurological Medical History: Reports: None Endocrine Medical History: Reports: None Renal/ Medical History: Reports: None Malignancy Medical History: Reports: None GI Medical History: Reports: None Musculoskeltal Medical History: Reports None Skin Medical History: Reports None Psychiatric Medical History: Reports: None Traumatic Medical History: Reports: None Infectious Medical History: Reports: None Past Surgical History: Reports: Hx Section, Hx Orthopedic Surgery - Right ring finger - Immunizations Immunizations up to date: Yes Hx Diphtheria, Pertussis, Tetanus Vaccination: Yes Review of Systems - Review of Systems Constitutional: No symptoms reported EENT: No symptoms reported Cardiovascular: No symptoms reported Respiratory: No symptoms reported Gastrointestinal: No symptoms reported Genitourinary: Burning, Other - Vaginal pain Female Genitourinary: Vaginal discharge, Vaginal odor, Other - Vaginal pain Musculoskeletal: No symptoms reported Skin: No symptoms reported Hematologic/Lymphatic: No symptoms reported Neurological/Psychological: No symptoms reported -: Yes All other systems reviewed and negative Physical Exam - Vital signs Vitals: Temp Pulse Resp BP Pulse Ox 98.4 F 82 20 154/82 H 97 05/23/19 17:22 05/23/19 17:22 05/23/19 17:22 05/23/19 17:22 05/23/19 17:22 Interpretation: Normal - General General appearance: Appears well, Alert - HEENT Head: Normocephalic, Atraumatic Eyes: Normal Pupils: PERRL - Respiratory Respiratory status: No respiratory distress Chest status: Nontender Breath sounds: Normal Chest palpation: Normal - Cardiovascular Rhythm: Regular Heart sounds: Normal auscultation Murmur: No - Abdominal Inspection: Normal Distension: No distension Bowel sounds: Normal Tenderness: Nontender Organomegaly: No organomegaly - Genitourinary Notes: Patient complains of vaginal burning vaginal itching and vaginal pain. She states that this is like when she had yeast infection and bacterial vaginosis. She states she did not want a pelvic exam would be okay with doing self swabs and being treated. She stated multiple times she does not have any pelvic pain at all - Back Back: Normal, Nontender - Extremities General upper extremity: Normal inspection, Nontender, Normal color, Normal ROM, Normal temperature General lower extremity: Normal inspection, Nontender, Normal color, Normal ROM, Normal temperature, Normal weight bearing. No: Dajuan's sign - Neurological Neuro grossly intact: Yes Cognition: Normal Orientation: AAOx4 Spencer Coma Scale Eye Opening: Spontaneous Sera Coma Scale Verbal: Oriented Sera Coma Scale Motor: Obeys Commands Sera Coma Scale Total: 15 Speech: Normal Motor strength normal: LUE, RUE, LLE, RLE Sensory: Normal - Psychological Associated symptoms: Normal affect, Normal mood - Skin Skin Temperature: Warm Skin Moisture: Dry Skin Color: Normal Course - Vital Signs Vital signs: Temp Pulse Resp BP Pulse Ox 98.1 F 63 16 133/71 H 96 05/23/19 18:40 05/23/19 18:40 05/23/19 18:40 05/23/19 18:40 05/23/19 18:40 - Laboratory Laboratory results interpreted by me: 05/23/19 17:40 Urine Protein 30 H Doctor's Discharge - Discharge Clinical Impression: Bacterial vaginosis Condition: Stable Disposition: HOME, SELF-CARE Additional Instructions: VAGINOSIS, BACTERIAL: Your exam shows you have bacterial vaginosis. This condition is due to an overgrowth of bacteria in the vagina. Symptoms may include vaginal itching or pain, a smelly discharge, and sometimes burning with urination. Normally this is not transmitted by sexual contact. Vaginosis can be treated with oral or topical antibiotics. Metronidazole (Flagyl) pills are usually effective. Topical vaginal creams include Cleocin and Metro-Gel. You should avoid sexual contact until your symptoms are all better. Call the doctor if you develop pelvic pain, fever, or problems with urination, or if you don't improve as expected. CEPHALOSPORINS: An antibiotic of the cephalosporin class has been prescribed. This type of antibiotic covers a wide variety of infections, including those of the skin, lungs, middle ear, and urinary tract. This antibiotic is somewhat similar to the penicillin family. In rare cases, a person who is allergic to penicillin will also be allergic to this medication. If you have had a severe allergic reaction to penicillin, and have not taken this antibiotic since that time, notify your doctor. Antibiotics which cover many germs ("broad spectrum" antibiotics) are more likely to cause diarrhea or "yeast" infections. Women prone to vaginal yeast p roblems may suffer an attack after taking this antibiotic. In infants, oral thrush (white spots "stuck" on the cheek) or yeast diaper rash may result. See your doctor if these problems occur. Call the doctor at once if you develop hives, itching, shortness of breath, or lightheadedness. AZITHROMYCIN: Azithromycin (Zithromax) is a broad spectrum antibiotic in the same class as erythromycin. It can treat a variety of bacterial infections, but is most frequently used for respiratory infections. Azithromycin is extremely long-lasting. It accumulates in body tissues and continues to kill bacteria for many days. In order to improve absorption, Azithromycin should be taken at least one hour before or two hours after a meal. It does not have the same strong tendency to upset the stomach as erythromycin and is usually very well tolerated. Patients who have had a rash or other true allergic reactions to erythromycin should not take this medication. Call if you develop gastrointestinal distress, severe diarrhea, rash, hives, itching, or shortness of breath. METRONIDAZOLE: Metronidazole (Flagyl) has been prescribed. This medication is used to kill a type of bacteria called anaerobes, and protozoan parasites such as trichomonas and Giardia. Flagyl often causes a metallic taste in the mouth and mild nausea. Do not use alcohol in any form with Flagyl (including alcohol in medication elixirs). Flagyl interacts with alcohol to cause flushing, palpitations, headache, stomach cramps, and vomiting. Do not use Flagyl if you are taking Antabuse (disulfiram). Call the doctor at once if you develop rash, shortness of breath, itching, or lightheadedness. FOLLOW-UP CARE: If you have been referred to a physician for follow-up care, call the physicians office for an appointment as you were instructed or within the next two days. If you experience worsening or a significant change in your symptoms, notify the physician immediately or return to the Emergency Department at any time for re-evaluation. Prescriptions: Metronidazole [Flagyl 500 mg Tablet] 500 mg PO BID #14 tablet Forms: Elevated Blood Pressure Referrals: OWEN PEARSON CNM [Primary Care Provider] - Follow up as needed
[2019-05-23 18:11] LABS: T.VAGINALIS (WET MOUNT) NO TRICHOMONAS SEEN; YEAST (WET MOUNT) NO YEAST SEEN
[2019-05-23 18:12] LABS: BACTERIA (WET MOUNT) 3+ BACTERIA SEEN; EPITHELIALS (WET MOUNT) 3+ EPITHELIALS SEEN; WBCS (WET MOUNT) FEW WBCS SEEN
[2019-05-23 18:16] LABS: APPEARANCE,URINE CLEAR; BILIRUBIN,URINE NEGATIVE (NEGATIVE); COLOR,URINE YELLOW; GLUCOSE, URINE NEGATIVE (NEGATIVE); KETONES,URINE NEGATIVE (NEGATIVE); PROTEIN,URINE 30 mg/dL (NEGATIVE); UROBILINOGEN,URINE NEGATIVE mg/dL (<2.0)
[2019-05-23] MEDS ORDERED: METRONIDAZOLE 500 MG TABLET PO ONE (18:33)
[2019-05-23] MEDS ORDERED: CEFTRIAXONE INJ 250 MG VIAL IM ONE (18:33)
[2019-05-23] MEDS ORDERED: LIDOCAINE 1% INJ-PF (10 MG/ML) 30 ML SDV INJ ONE (18:33)
[2019-05-23] MEDS ORDERED: AZITHROMYCIN 250 MG TABLET PO ONE (18:34)
[2019-05-23 18:45] VITALS: BP 133/71
[2019-05-23 19:42] LABS: CHLAM PCR NOT DETECTED (NOT DETECT)
== END 2019-05-23 19:19 | disposition home or self-care (01) ==
LOC: ER 17:16
DX: N76.0 Acute vaginitis (principal); B96.89 Other specified bacterial agents as the cause of diseases classified elsewhere
CPT/HCPCS: 99283; 96372; 87210; 81025; 81001; 87491; 87591; J3490; J0696

== ENCOUNTER 2020-05-20 11:43 | Emergency (ER) | payer SELFPAY ==
[2020-05-20 11:52] VITALS: BP 119/79
[2020-05-20] MEDS ORDERED: ONDANSETRON 4 MG TAB.RAPDIS PO ONE (12:00)
--- NOTE | 2020-05-20 12:03 | ER Document Report ---
ED Medical Screen (RME) - General Chief Complaint: Abdominal Pain Stated Complaint: ABDOMINAL PAIN,DIARRHEA Time Seen by Provider: 05/20/20 11:55 Primary Care Provider: OWEN PEARSON CNM [Primary Care Provider] - Follow up as needed TRAVEL OUTSIDE OF THE [place] IN LAST 30 DAYS: No - HPI Notes: 05/20/20 12:00 25-year-old female presents to emergency room today with sudden onset g eneralized abdominal pain for the last 24 hours with nausea, diarrhea. Patient reports watery stool, no melena. patient states she tried some "stomach medications" without relief. Denies any new medications foods or travel, recent antibiotic use. Denies any URI-like symptoms. Reports pain is stabbing pain, intermittent 4 out of 5. LMP 04/23/2020. Denies anyone else ill in the household. Denies any fevers or chills. Patient reports she did have 2 C- sections in the past. I have greeted and performed a rapid initial assessment of this patient. A comprehensive ED assessment and evaluation of the patient, analysis of test results and completion of the medical decision making process will be conducted by additional ED providers. PHYSICAL EXAMINATION: GENERAL: Well-appearing, well-nourished and in no acute distress. HEAD: Atraumatic, normocephalic. EYES: Pupils equal round extraocular movements intact, conjunctiva are normal. NECK: Normal range of motion CV: s1, s2 regular abd: mild RLQ/LLQ abd pain. CVA tenderness appreciated bilaterally LUNGS: No respiratory distress Musculoskeletal: Normal range of motion NEUROLOGICAL: Normal speech, normal gait. SKIN: Warm, Dry, normal turgor, no rashes or lesions noted. I did order lab work on this patient as well as urinalysis. Patient does need a better abdominal exam in the back. I do suspect gastroenteritis. I will leave it up to the main side provider to determine if she does need radiological imaging The patient was evaluated during a global COVID-19 pandemic and that diagnosis was suspected/considered upon their initial presentation. Their evaluation, treatment and testing was consistent with current guidelines for patients who present with complaints or symptoms and may be related to COVID-19. 05/20/20 12:02 - Related Data Allergies/Adverse Reactions: No Known Allergies Allergy (Verified 05/23/19 17:30) Past Medical History - Social History Frequency of alcohol use: Social Family history: Reviewed & Not Pertinent - Past Medical History Cardiac Medical History: Denies: Hx Coronary Artery Disease, Hx Heart Attack, Hx Hypertension Pulmonary Medical History: Denies: Hx Asthma, Hx Bronchitis, Hx COPD, Hx Pneumonia Neurological Medical History: Denies: Hx Cerebrovascular Accident, Hx Seizures Renal/ Medical History: Denies: Hx Peritoneal Dialysis Musculoskeltal Medical History: Denies Hx Arthritis Past Surgical History: Reports: Hx Section, Hx Orthopedic Surgery - Right ring finger - Immunizations Immunizations up to date: Yes Hx Diphtheria, Pertussis, Tetanus Vaccination: Yes Physical Exam - Vital signs Vitals: Temp Pulse Resp BP Pulse Ox 98.4 F 62 16 119/79 100 05/20/20 11:48 05/20/20 11:48 05/20/20 11:48 05/20/20 11:48 05/20/20 11:48 Course - Vital Signs Vital signs: Temp Pulse Resp BP Pulse Ox 98.4 F 62 16 119/79 100 05/20/20 11:48 05/20/20 11:48 05/20/20 11:48 05/20/20 11:48 05/20/20 11:48 Doctor's Discharge - Discharge Referrals: OWEN PEARSON CNM [Primary Care Provider] - Follow up as needed
[2020-05-20 12:40] LABS: ABSOLUTE LYMPHOCYTES (AUTO) 1.2 10^3/uL (0.5-4.7); ABSOLUTE MONOCYTES (AUTO) 0.6 10^3/uL (0.1-1.4); BASOPHILS % (AUTO) 0.3 % (0-2); EOSINOPHILS % (AUTO) 0.3 % (0-6); HEMATOCRIT 39.8 % (36.0-47.0); HEMOGLOBIN 13.3 g/dL (12.0-15.5); LYMPHOCYTES % (AUTO) 20.8 % (13-45); MEAN CORPUSCULAR HEMOGLOBIN 28.2 pg (27.0-33.4); MEAN CORPUSCULAR HGB CONC 33.4 g/dL (32.0-36.0); MEAN CORPUSCULAR VOLUME 84 fl (80-97); MONOCYTES % (AUTO) 10.8 % (3-13); PLATELET COUNT 231 10^3/uL (150-450); RED BLOOD COUNT 4.72 10^6/uL (3.72-5.28); RED CELL DISTRIBUTION WIDTH 13.9 % (11.5-14.0); SEGMENTED NEUTROPHILS % (AUTO) 67.8 % (42-78); TOTAL CELLS COUNTED % (AUTO) 100 %; WHITE BLOOD COUNT 5.9 10^3/uL (4.0-10.5)
[2020-05-20 12:56] LABS: APPEARANCE,URINE SLIGHTLY-CLOUDY; BILIRUBIN,URINE NEGATIVE (NEGATIVE); COLOR,URINE YELLOW; GLUCOSE, URINE NEGATIVE (NEGATIVE); KETONES,URINE NEGATIVE (NEGATIVE); LEUKOCYTE ESTERASE,URINE NEGATIVE (NEGATIVE); NITRITE,URINE NEGATIVE (NEGATIVE); PROTEIN,URINE NEGATIVE (NEGATIVE); URINE SPECIFIC GRAVITY 1.017
[2020-05-20 13:04] LABS: ALBUMIN 4.5 g/dL (3.5-5.0); ALKALINE PHOSPHATASE 67 U/L (38-126); ANION GAP 5 (5-19); ASPARTATE AMINO TRANSFERASE 21 U/L (14-36); BILIRUBIN,DIRECT 0.1 mg/dL (0.0-0.4); BILIRUBIN,TOTAL 1.1 mg/dL (0.2-1.3); BLOOD UREA NITROGEN 9 mg/dL (7-20); CALCIUM 9.4 mg/dL (8.4-10.2); CARBON DIOXIDE 28 mmol/L (22-30); CHLORIDE 104 mmol/L (98-107); GLUCOSE 94 mg/dL (75-110); POTASSIUM 4.2 mmol/L (3.6-5.0); TOTAL PROTEIN 7.8 g/dL (6.3-8.2)
== END 2020-05-20 13:55 | disposition left against medical advice (07) ==
LOC: ER 11:43
DX: R10.84 Generalized abdominal pain (principal); R11.0 Nausea; R19.7 Diarrhea, unspecified; Z20.822 Contact with and (suspected) exposure to COVID-19; Z53.20 Procedure and treatment not carried out because of patient's decision for unspecified reasons
CPT/HCPCS: 99281; 36415; 83690; 84703; 85025; 80053; 81001; S0119